=== PATIENT | male | born 1960 | race Caucasian/White ===

== ENCOUNTER 2023-06-22 13:08 | Outpatient (CLI) | payer MEDICAID ==
[2023-06-22 14:38] LABS: BASOPHILS % (AUTO) 0.4 % (0-1); EOSINOPHILS # (AUTO) 0.4 X10'3 (0-0.9); EOSINOPHILS % (AUTO) 3.7 % (0-6); LYMPHOCYTES # (AUTO) 2.1 X10'3 (1.1-4.8); LYMPHOCYTES % (AUTO) 21.7 % (21-51); MEAN CORPUSCULAR HEMOGLOBIN 32.9 PG (27.0-31.0); MEAN CORPUSCULAR HGB CONC 34.3 g/dL (33.0-36.5); MEAN CORPUSCULAR VOLUME 95.9 FL (78-98); MEAN PLATELET VOLUME 8.7 FL (7.4-10.4); MONOCYTES # (AUTO) 0.8 X10'3 (0-0.9); MONOCYTES % (AUTO) 8.4 % (2-12); NEUTROPHILS # (AUTO) 6.4 X10'3 (1.8-7.7); NEUTROPHILS % (AUTO) 65.8 % (42-75); PRE OP HEMATOCRIT 44.7 % (42.0-52.0); PRE OP HEMOGLOBIN 15.3 g/dL (14.0-17.9); PRE OP PLATELET COUNT 221 X10'3 (140-440); PRE OP WHITE BLOOD COUNT 9.8 10'3 (4.8-10.8); RED BLOOD COUNT 4.67 X10'6 (4.70-6.10); RED CELL DISTRIBUTION WIDTH 12.5 % (11.5-14.5)
[2023-06-22 15:04] LABS: ALBUMIN 3.7 G/DL (3.4-5.0); ALBUMIN/GLOBULIN RATIO 1.1 (1.1-1.5); ALKALINE PHOSPHATASE 80 IU/L (46-116); BLOOD UREA NITROGEN 13 MG/DL (7-18); CALCIUM 9.2 MG/DL (8.5-10.1); CHLORIDE 103 MMOL/L (99-107); CREATININE 1.08 MG/DL (0.60-1.10); PRE OP ALT 19 U/L (30-65); PRE OP ANION GAP 14 (8-16); PRE OP AST 14 U/L (10-37); PRE OP BILIRUB, TOTAL 0.2 MG/DL (0.0-1.0); PRE OP POTASSIUM 3.9 MMOL/L (3.4-5.1); PRE OP SODIUM 142 MMOL/L (135-145); TOTAL CARBON DIOXIDE 25.5 MMOL/L (24-32); TOTAL PROTEIN 7.1 G/DL (6.4-8.2); eGFR 69 ML/MIN
[2023-06-22 15:09] LABS: PRE OP GLUCOSE 238 MG/DL (70-104)
[2023-06-22] MEDS ORDERED: ATOR20TA66 PO (16:01)
[2023-06-22] MEDS ORDERED: METF-438 PO (16:01)
[2023-06-22] MEDS ORDERED: CITA40TA22 PO (16:01)
[2023-06-22] MEDS ORDERED: OMEP20CA16 PO (16:01)
[2023-06-22] MEDS ORDERED: TIMO5DRO44 EACHEYE (16:01)
[2023-06-22] MEDS ORDERED: EMPA10TA PO (16:01)
[2023-06-22] MEDS ORDERED: BUDE10.2 INH (16:01)
[2023-06-22] MEDS ORDERED: AZEL6DRO5 EACHEYE (16:01)
[2023-06-22] MEDS ORDERED: GABA300C PO (16:01)
[2023-06-22] MEDS ORDERED: ALBU18HF2 INH (16:01)
[2023-06-22] MEDS ORDERED: LATA2.5D14 EACHEYE (16:01)
== END 2023-06-22 23:59 | disposition home or self-care (01) ==
LOC: LAB 13:08 → EDSTATUS 06-29 08:30
PROVIDERS: ATTEND Orthopaedic Surgery
DX: Z01.818 Encounter for other preprocedural examination (principal); M25.512 Pain in left shoulder; Z96.611 Presence of right artificial shoulder joint
CPT/HCPCS: 36415; 80053; 83036; 85025; 87081; 93005

== ENCOUNTER 2024-05-16 05:15 | Inpatient (IN) | payer MEDICAID ==
[2024-05-09 11:35] LABS: BASOPHILS # (AUTO) 0.1 X10'3 (0-0.2); BASOPHILS % (AUTO) 0.8 % (0-1); EOSINOPHILS # (AUTO) 0.6 X10'3 (0-0.9); EOSINOPHILS % (AUTO) 7.9 % (0-6); LYMPHOCYTES # (AUTO) 1.3 X10'3 (1.1-4.8); LYMPHOCYTES % (AUTO) 17.2 % (21-51); MEAN CORPUSCULAR HEMOGLOBIN 33.5 PG (27.0-31.0); MEAN CORPUSCULAR HGB CONC 34.1 g/dL (33.0-36.5); MEAN CORPUSCULAR VOLUME 98.2 FL (78-98); MEAN PLATELET VOLUME 9.1 FL (7.4-10.4); MONOCYTES # (AUTO) 0.6 X10'3 (0-0.9); MONOCYTES % (AUTO) 7.9 % (2-12); NEUTROPHILS # (AUTO) 4.9 X10'3 (1.8-7.7); NEUTROPHILS % (AUTO) 66.2 % (42-75); PRE OP HEMATOCRIT 46.8 % (42.0-52.0); PRE OP PLATELET COUNT 227 X10'3 (140-440); PRE OP WHITE BLOOD COUNT 7.4 10'3 (4.8-10.8); RED BLOOD COUNT 4.77 X10'6 (4.70-6.10); RED CELL DISTRIBUTION WIDTH 12.4 % (11.5-14.5)
[2024-05-09 11:36] LABS: ALBUMIN 4.2 G/DL (3.4-5.0); ALBUMIN/GLOBULIN RATIO 1.1 (1.1-1.5); ALKALINE PHOSPHATASE 88 IU/L (46-116); BLOOD UREA NITROGEN 18 MG/DL (7-18); BUN/CREATININE RATIO 20.2 (10.0-20.0); CALCIUM 9.5 MG/DL (8.5-10.1); CHLORIDE 101 MMOL/L (99-107); CREATININE 0.89 MG/DL (0.60-1.10); PRE OP ALT 22 U/L (30-65); PRE OP ANION GAP 8 (8-16); PRE OP AST 12 U/L (10-37); PRE OP BILIRUB, TOTAL 0.3 MG/DL (0.0-1.0); PRE OP POTASSIUM 4.1 MMOL/L (3.4-5.1); PRE OP SODIUM 140 MMOL/L (135-145); TOTAL CARBON DIOXIDE 31.2 MMOL/L (24-32); TOTAL PROTEIN 7.9 G/DL (6.4-8.2); eGFR 87 ML/MIN
[2024-05-09 11:42] LABS: PRE OP GLUCOSE 285 MG/DL (70-104)
[~2024-05-16] VITALS: Ht 170.2 cm; Wt 51.0 kg
[2024-05-16] VITALS (27 sets, daily range): BP systolic 103–126; BP diastolic 68–83; PULSE 62–90; RESP 12–21; TEMP 97.8–98.6; O2SAT 94–99
[~2024-05-16 05:15] MED LIST: ALBU18HF2 INH; ATOR20TA66 PO; BUDE10.2 INH; CITA40TA22 PO; EMPA10TA PO; GABA300C PO; IBUP-1986 PO; LATA2.5D14 EACHEYE; METF-438 PO; OMEP20CA16 PO; TIMO5DRO44 EACHEYE
[2024-05-16] MEDS: ringers solution, lacted 1,000 ML IV SCH ×2 (05:30→12:08)
[2024-05-16] MEDS ORDERED: VANCOMYCIN 1GM 200ML H20 (PEG) 200 ML IV ONE (05:30)
[2024-05-16] MEDS: tranexamic acid 1gm/0.7% sal. 100 ML IV ONE (05:42)
[2024-05-16] MEDS: ceFAZolin 2gm in dextrose, iso 50 ML IV ONE (05:42)
[2024-05-16] MEDS: vancomycin/NS 1 GM ADD-VANTAGE 250 ML X 1 DOSE IV ONE (06:04)
[2024-05-16] MEDS: famotidine 20mg tablet PO ONE (06:04)
[2024-05-16] MEDS ORDERED: vancomycin 1,000mg inj ONE (06:55)
[2024-05-16] MEDS ORDERED: cloNIDine hcl/PF 100mcg/ml inj ONE (07:16)
[2024-05-16] MEDS: insulin regular, human 10 units/0.1 ml syringe SQ ONE (07:19)
[2024-05-16] MEDS ORDERED: midazolam 1 mg/ML 2ml injection ONE (07:24)
[2024-05-16] MEDS ORDERED: fentaNYL /PF 50mcg/ml 5ml ampule ONE (07:24)
[2024-05-16] MEDS ORDERED: meperidine/PF 25mg/ml syringe IV PRN (07:25)
[2024-05-16] MEDS ORDERED: proCHLORperazine 10 MG/2 ml inj IV PRN (07:25)
[2024-05-16] MEDS ORDERED: morphine 4 MG/ML inj SYRINge IV PRN (07:25)
[2024-05-16] MEDS ORDERED: ondansetron/PF 4mg/2ml inj IV PRN ×2 (07:25→10:50)
[2024-05-16] MEDS ORDERED: HYDROmorphone/PF 0.2 MG/ML SYRINGE IV PRN ×2 (07:25)
[2024-05-16] MEDS ORDERED: hydrALAZINE 20mg/ml inj. IV PRN (07:25)
[2024-05-16] MEDS ORDERED: morphine 2 MG/ML inj. syringe IV PRN (07:25)
[2024-05-16] MEDS ORDERED: ROPIVAcaine 0.2% (10 MG/5 ML) BOLUS INJECTION INTERSCALE PRN (07:25)
[2024-05-16] MEDS ORDERED: acetaminophen 1,000mg/100ml IV 100 ML IV PRN (07:25)
[2024-05-16] MEDS ORDERED: labetalol 20mg/4ml (5mg/ml) syringe IV PRN (07:25)
[2024-05-16] MEDS ORDERED: sevoflurane 250ml liquid IH ONE (07:26)
[2024-05-16] MEDS ORDERED: propofol inj 20 ML IV ONE (08:25)
[2024-05-16] MEDS ORDERED: ROPIVAcaine 0.5% (5mg/ml) 30ml vial ONE (08:25)
[2024-05-16] MEDS ORDERED: LIDOcaine 2% (20mg/ml) 5ml vial ONE (08:25)
[2024-05-16] MEDS ORDERED: ondansetron/PF 4mg/2ml inj ONE (08:25)
[2024-05-16] MEDS ORDERED: LIDOcaine 1%/PF 5ML 10 MG/ML VIAL ONE (08:26)
[2024-05-16] MEDS ORDERED: dexamethasone sod phosphate 4mg/ml inj. ONE (08:26)
[2024-05-16] MEDS ORDERED: rocuronium 10mg/ml inj IV ONE (08:26)
[2024-05-16] MEDS ORDERED: ePHEDrine 50MG/ML INJ. ONE (09:52)
[2024-05-16] MEDS ORDERED: bisacodyl 10mg suppository rectal RC PRN (10:50)
[2024-05-16] MEDS ORDERED: magnesium hydroxide 30ml (MOM) UD suspension PO PRN (10:50)
[2024-05-16] MEDS ORDERED: diphenhydrAMINE 25mg capsule PO PRN ×2 (10:50)
[2024-05-16] MEDS ORDERED: acetaminophen 325mg tablet PO PRN (10:50)
[2024-05-16] MEDS: TRANEXAMIC ACID IV ONE ×2 (10:50→13:52)
[2024-05-16] MEDS ORDERED: naloxone 0.4 mg/ml inj IV PRN (10:50)
[2024-05-16] MEDS: NORMAL SALINE IV ONE ×2 (10:50→13:52)
[2024-05-16] MEDS: ROPIVAcaine 0.2%/PF PUMP/bolus 545 ML INTERSCALE SCH (11:20)
[2024-05-16] MEDS ORDERED: albuterol 2.5 MG/3 ML nebule NEB PRN (12:30)
[2024-05-16] MEDS: acetaminophen 325mg tablet PO SCH (14:29)
[2024-05-16] MEDS: oxyCODONE IR 5mg (immed. release) tablet PO PRN (14:30)
[2024-05-16] MEDS: ceFAZolin 2gm in dextrose, iso 50 ML IV SCH (18:59)
[2024-05-16] MEDS: Budesonide/Formoterol Fumarate (Symbicort 160-4.5 Mcg Inhaler) IH SCH (20:00)
[2024-05-16] MEDS: sennosides 8.6mg tablet PO SCH (20:28)
[2024-05-16] MEDS: metFORMIN 500mg tablet PO SCH (20:28)
[2024-05-16] MEDS: atorvastatin 20mg tablet PO SCH (20:28)
[2024-05-16] MEDS: gabapentin 300mg capsule PO SCH (20:28)
[2024-05-16] MEDS: vancomycin/NS 1 GM ADD-VANTAGE 250 ML IV SCH (20:28)
[2024-05-16] MEDS: timolol 0.5% ophthalmic solution 5ml bottle EACHEYE SCH (20:29)
[2024-05-16] MEDS: latanoprost 0.005% 2.5ml ophthalmic drops EACHEYE SCH (20:29)
[2024-05-17] VITALS (12 sets, daily range): BP systolic 102–125; BP diastolic 57–85; PULSE 79–106; RESP 16–20; TEMP 97–98.7; O2SAT 94–100
[2024-05-17 06:15] LABS: BASOPHILS % (AUTO) 0.2 % (0-1); EOSINOPHILS # (AUTO) 0.2 X10'3 (0-0.9); EOSINOPHILS % (AUTO) 1.2 % (0-6); HEMATOCRIT 39.1 % (42.0-52.0); HEMOGLOBIN 13.1 g/dl (14.0-17.9); LYMPHOCYTES # (AUTO) 2.1 X10'3 (1.1-4.8); LYMPHOCYTES % (AUTO) 13.1 % (21-51); MEAN CORPUSCULAR HEMOGLOBIN 32.4 PG (27.0-31.0); MEAN CORPUSCULAR HGB CONC 33.5 g/dL (33.0-36.5); MEAN CORPUSCULAR VOLUME 96.8 FL (78-98); MEAN PLATELET VOLUME 8.4 FL (7.4-10.4); MONOCYTES # (AUTO) 2.5 X10'3 (0-0.9); MONOCYTES % (AUTO) 15.4 % (2-12); NEUTROPHILS # (AUTO) 11.4 X10'3 (1.8-7.7); NEUTROPHILS % (AUTO) 70.1 % (42-75); PLATELET COUNT 205 X10'3 (140-440); RED BLOOD COUNT 4.04 X10'6 (4.70-6.10); RED CELL DISTRIBUTION WIDTH 12.7 % (11.5-14.5); WHITE BLOOD COUNT 16.2 X10'3 (4.5-11.0)
[2024-05-17 06:25] LABS: ANION GAP 9 (8-16); CHLORIDE 104 MMOL/L (99-107); POTASSIUM 3.8 MMOL/L (3.5-5.1); SODIUM 139 MMOL/L (135-145); TOTAL CARBON DIOXIDE 26.2 MMOL/L (24-32)
[2024-05-17] MEDS: EMPAGLIFLOZIN 10 MG TABLET PO SCH (07:44)
[2024-05-17] MEDS: pantoprazole 40mg Tablet.DR PO SCH (07:46)
[2024-05-17] MEDS: aspirin 325mg tablet PO SCH (07:46)
[2024-05-17] MEDS: citalopram 20mg tablet PO SCH (07:46)
[2024-05-17] MEDS ORDERED: DEXTROSE 15 GM of carb/4 tabs (each vial/BOTTLE has 4 tablets) PO PRN ×2 (12:45)
[2024-05-17] MEDS ORDERED: glucagon, human recombinant 1mg kit SUBCUT PRN (12:45)
[2024-05-17] MEDS ORDERED: dextrose 50%-water 50ml dispensing syringe IV PRN ×2 (12:45)
[2024-05-17 14:32] LABS: CHOL/HDL RATIO 2.1 (0.00-4.99); CHOLESTEROL 115 MG/DL (0-200); HDL CHOLESTEROL 56 MG/DL (35-60); LDL CHOLESTEROL 30 MG/DL (50-100); TRIGLYCERIDES 320 MG/DL (20-135)
[2024-05-17 14:48] LABS: BILIRUBIN,URINE NEGATIVE (Neg); CLARITY,URINE CLEAR (Clear); COLOR,URINE YELLOW (Yellow); GLUCOSE, URINE >=1000 mg/dl (Neg); KETONES,URINE TRACE mg/dl (Neg); LEUKOCYTE ESTERASE ,URINE NEGATIVE (Neg); NITRITES, URINE NEGATIVE (Neg); OCCULT BLOOD,URINE NEGATIVE (Neg); PROTEIN,URINE NEGATIVE (Neg); UROBILINOGEN,URINE 0.2 E.U/dL (0.2-1.0)
[2024-05-17 14:54] LABS: UA COLLECTION TYPE NON-SPECIFIED
[2024-05-17 14:59] LABS: BACTERIA,URINE NONE SEEN /HPF (Neg); RBC,URINE 0-2 /HPF (0-2); SQUAMOUS EPITHELIAL CELL,UR NONE SEEN /LPF (FEW); WBC,URINE NONE SEEN /HPF (0-4)
[2024-05-17] MEDS: ipratropium/albuterol 3ml nebule NEB SCH (16:02)
[2024-05-17] MEDS: HYDROmorphone inj. 0.5 MG/0.5 ML DISP.SYRIN IV PRN (16:39)
[2024-05-17] MEDS: INSULIN LISPRO 100 UNIT/ML INSULN.PEN MULTI-DOSE SQ SCH (20:47)
[2024-05-17] MEDS: insulin glargine (Lantus) pen - multi-dose SQ SCH (21:00)
[2024-05-18] VITALS (17 sets, daily range): BP systolic 115–129; BP diastolic 79–88; PULSE 74–92; RESP 13–18; TEMP 97.9–98.5; O2SAT 92–97
[2024-05-18 07:00] LABS: BASOPHILS % (AUTO) 0.2 % (0-1); EOSINOPHILS # (AUTO) 0.1 X10'3 (0-0.9); EOSINOPHILS % (AUTO) 1.1 % (0-6); HEMATOCRIT 35.9 % (42.0-52.0); HEMOGLOBIN 12.1 g/dl (14.0-17.9); LYMPHOCYTES # (AUTO) 1.3 X10'3 (1.1-4.8); LYMPHOCYTES % (AUTO) 10.3 % (21-51); MEAN CORPUSCULAR HGB CONC 33.9 g/dL (33.0-36.5); MEAN CORPUSCULAR VOLUME 97.4 FL (78-98); MEAN PLATELET VOLUME 8.5 FL (7.4-10.4); NEUTROPHILS # (AUTO) 9.5 X10'3 (1.8-7.7); NEUTROPHILS % (AUTO) 73.4 % (42-75); PLATELET COUNT 178 X10'3 (140-440); RED BLOOD COUNT 3.68 X10'6 (4.70-6.10); RED CELL DISTRIBUTION WIDTH 12.3 % (11.5-14.5)
[2024-05-18 09:12] LABS: ALANINE AMINOTRANSFERASE 19 U/L (12-78); ALBUMIN 3.1 G/DL (3.4-5.0); ALKALINE PHOSPHATASE 63 IU/L (46-116); ANION GAP 8 (8-16); ASPARTATE AMINO TRANSFERASE 22 U/L (10-37); BILIRUBIN,TOTAL 0.4 MG/DL (0.1-1.0); BLOOD UREA NITROGEN 14 MG/DL (7-18); BUN/CREATININE RATIO 15.7 (10.0-20.0); CALCIUM 8.7 MG/DL (8.5-10.1); CHLORIDE 103 MMOL/L (99-107); CREATININE 0.89 MG/DL (0.60-1.10); GLUCOSE 220 MG/DL (70-104); POTASSIUM 3.3 MMOL/L (3.5-5.1); SODIUM 136 MMOL/L (135-145); TOTAL CARBON DIOXIDE 25.1 MMOL/L (24-32); TOTAL PROTEIN 6.2 G/DL (6.4-8.2); eCRCL 62 ML/MIN; eGFR 87 ML/MIN
[2024-05-18] MEDS ORDERED: potassium Cl 40MEQ/1/2NS 520ml 520 ML IV PRN (09:55)
[2024-05-18] MEDS ORDERED: magnesium Cl slow-release 64mg tablet PO PRN (09:55)
[2024-05-18] MEDS ORDERED: magnesium sulf-water 4G/100mL 100 ML IV PRN (09:55)
[2024-05-18] MEDS ORDERED: potassium Cl 20 mEq SR tablet PO PRN (09:55)
[2024-05-18] MEDS ORDERED: magnesium sulf-water 2g/50mL 50 ML IV PRN (09:55)
[2024-05-18] MEDS: potassium Cl 20 mEq SR tablet PO PRN (10:07)
[2024-05-18] MEDS: INSULIN LISPRO 100 UNIT/ML INSULN.PEN MULTI-DOSE SQ SCH (10:11)
[2024-05-18] MEDS: K and/or MAG REPLACEMENT MC SCH (20:00)
[2024-05-19 05:44] LABS: BASOPHILS % (AUTO) 0.3 % (0-1); EOSINOPHILS # (AUTO) 0.5 X10'3 (0-0.9); EOSINOPHILS % (AUTO) 4.1 % (0-6); HEMATOCRIT 38.4 % (42.0-52.0); HEMOGLOBIN 12.8 g/dl (14.0-17.9); LYMPHOCYTES # (AUTO) 1.5 X10'3 (1.1-4.8); LYMPHOCYTES % (AUTO) 11.1 % (21-51); MEAN CORPUSCULAR HEMOGLOBIN 32.8 PG (27.0-31.0); MEAN CORPUSCULAR HGB CONC 33.4 g/dL (33.0-36.5); MEAN PLATELET VOLUME 8.5 FL (7.4-10.4); MONOCYTES % (AUTO) 15.3 % (2-12); NEUTROPHILS # (AUTO) 9.2 X10'3 (1.8-7.7); NEUTROPHILS % (AUTO) 69.2 % (42-75); PLATELET COUNT 208 X10'3 (140-440); RED BLOOD COUNT 3.91 X10'6 (4.70-6.10); RED CELL DISTRIBUTION WIDTH 12.7 % (11.5-14.5); WHITE BLOOD COUNT 13.3 X10'3 (4.5-11.0)
[2024-05-19 05:58] LABS: MAGNESIUM 1.9 MG/DL (1.5-2.4)
[2024-05-19 06:00] VITALS: BP 133/86; PULSE 80; RESP 16; TEMP 98.3; O2SAT 94
[2024-05-19 07:00] VITALS: RESP 16; O2SAT 94
[2024-05-19 07:38] VITALS: PULSE 91; RESP 16; O2SAT 99
[2024-05-19 07:40] VITALS: PULSE 91; RESP 16
[2024-05-19 09:54] LABS: ALANINE AMINOTRANSFERASE 22 U/L (12-78); ALBUMIN 3.2 G/DL (3.4-5.0); ALBUMIN/GLOBULIN RATIO 0.9 (1.1-1.5); ALKALINE PHOSPHATASE 65 IU/L (46-116); ANION GAP 12 (8-16); ASPARTATE AMINO TRANSFERASE 15 U/L (10-37); BILIRUBIN,TOTAL 0.5 MG/DL (0.1-1.0); BLOOD UREA NITROGEN 19 MG/DL (7-18); BUN/CREATININE RATIO 27.5 (10.0-20.0); CALCIUM 8.7 MG/DL (8.5-10.1); CHLORIDE 102 MMOL/L (99-107); CREATININE 0.69 MG/DL (0.60-1.10); GLUCOSE 179 MG/DL (70-104); POTASSIUM 4.1 MMOL/L (3.5-5.1); SODIUM 138 MMOL/L (135-145); TOTAL CARBON DIOXIDE 24.4 MMOL/L (24-32); TOTAL PROTEIN 6.6 G/DL (6.4-8.2); eCRCL 80 ML/MIN; eGFR > 90 ML/MIN
[2024-05-19] MEDS ORDERED: ASPI-1 PO (11:35)
[2024-05-19 11:47] VITALS: PULSE 93; RESP 16; O2SAT 98
[2024-05-19 11:48] VITALS: PULSE 96; RESP 16
== END 2024-05-19 13:35 | disposition home or self-care (01) | DRG 322 ==
LOC: PAS IN 05:15 → ORTHO 4S 13:25
PROVIDERS: ADMIT Orthopaedic Surgery; ATTEND Orthopaedic Surgery
PROC: 3E0T3BZ Introduction of Anesthetic Agent into Peripheral Nerves and Plexi, Percutaneous Approach (ICD-10-PCS; 2024-05-16)
PROC: 0JH80WZ Insertion of Totally Implantable Vascular Access Device into Abdomen Subcutaneous Tissue and Fascia, Open Approach (ICD-10-PCS; 2024-05-16)
PROC: 3E0T33Z Introduction of Anti-inflammatory into Peripheral Nerves and Plexi, Percutaneous Approach (ICD-10-PCS; 2024-05-16)
PROC: 0RRK00Z Replacement of Left Shoulder Joint with Reverse Ball and Socket Synthetic Substitute, Open Approach (ICD-10-PCS; principal; 2024-05-16 07:26)
DX: M19.012 Primary osteoarthritis, left shoulder (principal); E11.9 Type 2 diabetes mellitus without complications; I10 Essential (primary) hypertension; E78.5 Hyperlipidemia, unspecified; R10.84 Generalized abdominal pain; J44.9 Chronic obstructive pulmonary disease, unspecified; Z88.5 Allergy status to narcotic agent
CPT/HCPCS: 36415; 71045; 73020; 80051; 80053; 80061; 81001; 82948; 83036; 83735; 85025; 87081; 93005; 94640; 94760; 97110; 97116; 97161; 97530; A4565; A4615; A4618; A6258; A6449; A7000; C1776; C9250; G0378; J0690; J0735; J1100; J1171; J1815; J2003; J2250; J2405; J2704; J2710; J2795; J3010; J3370; J3372; J3490; J7120

== ENCOUNTER 2024-06-28 10:05 | Outpatient (CLI) | payer MEDICAID ==
[~2024-06-28 10:05] MED LIST changes: +ASPI-1 PO
[2024-06-28 11:07] VITALS: PULSE 60; RESP 14; O2SAT 96
== END 2024-06-28 23:59 | disposition home or self-care (01) ==
LOC: RT 10:05
PROVIDERS: ATTEND Family Medicine
DX: J44.9 Chronic obstructive pulmonary disease, unspecified (principal)
CPT/HCPCS: 94010; 94760